=== PATIENT | male | born 1985 | race African-American/Black ===

== ENCOUNTER 2018-08-02 15:38 | Emergency (ER) | payer SELFPAY ==
[~2018-08-02] VITALS: Ht 190.5 cm; Wt 72.6 kg
[2018-08-02 15:55] VITALS: BP 127/81
--- NOTE | 2018-08-02 16:22 | PHYS DOC ---
Past History Past Medical History: No Pertinent History Past Surgical History: Other Alcohol Use: Occasionally Drug Use: Marijuana Adult General Chief Complaint Chief Complaint: WOUND CHECK HPI HPI 32-year-old male presents for evaluation of right-sided facial wound. The patient had a large abscess incision and drained one week ago. He has 4 virgen and a drain placed. He is concerned that the drain seems to be "coming out" and he wonders should be removed. Patient states that he is having minimal drainage at this time. He's had no purulent drainage. He is taking his antibiotics as prescribed. He was not told when to go back and have the drain taken out. He denies fever or chills. He has no other complaints. Review of Systems Review of Systems Constitutional: Denies fever or chills [] Eyes: Denies change in visual acuity, redness, or eye pain [] HENT: Denies nasal congestion or sore throat [] Respiratory: Denies cough or shortness of breath [] Cardiovascular: No additional information not addressed in HPI [] GI: Denies abdominal pain, nausea, vomiting, bloody stools or diarrhea [] : Denies dysuria or hematuria [] Musculoskeletal: Denies back pain or joint pain [] Integument: [place] and drain in right side of neck[] Neurologic: Denies headache, focal weakness or sensory changes [] Endocrine: Denies polyuria or polydipsia [] All other systems were reviewed and found to be within normal limits, except as documented in this note. Physical Exam Physical Exam Constitutional: Well developed, well nourished, no acute distress, non-toxic appearance. [] HENT: Normocephalic, atraumatic, bilateral external ears normal, oropharynx moist, no oral exudates, nose normal. [] Eyes: PERRLA, EOMI, conjunctiva normal, no discharge. [] Neck: Normal range of motion, no tenderness, supple, no stridor. [] Cardiovascular:Heart rate regular rhythm, no murmur [] Lungs & Thorax: Bilateral breath sounds clear to auscultation [] Abdomen: Bowel sounds normal, soft, no tenderness, no masses, no pulsatile masses. [] Skin: 4 virgen in the right neck with silicone drain tube protruding from the end of the incision. Minimal clear drainage. No surrounding erythema or warmth.[ ] Back: No tenderness, no CVA tenderness. [] Extremities: No tenderness, no cyanosis, no clubbing, ROM intact, no edema. [] Neurologic: Alert and oriented X 3, normal motor function, normal sensory function, no focal deficits noted. [] Psychologic: Affect normal, judgement normal, mood normal. [] Current Patient Data Vital Signs Vital Signs Date Time Temp Pulse Resp B/P (MAP) Pulse Ox O2 Delivery O2 Flow Rate FiO2 08/02/18 15:55 98.4 74 16 98 Room Air EKG EKG [] Radiology/Procedures Radiology/Procedures [] Course & Med Decision Making Course & Med Decision Making Pertinent Labs and Imaging studies reviewed. (See chart for details) The patient strain does appear to be working its way out. I believe that after a week strain should be removed. There is minimal drainage present and it is not purulent. I will remove the drain. No signs of current infection. The patient is stable for discharge at this time. The drain was retained with 1 suture. I cut this pierces ears and the drain easily slid out of the wound with gentle traction by tweezers. There was no bleeding. No further drainage. It was covered with a clean nonadherent dressing. [] Dragon Disclaimer Dragon Disclaimer This electronic medical record was generated, in whole or in part, using a voice recognition dictation system. Departure Departure: Referrals: PCP,REGI (PCP) HEATHER FOURNIER DO Aug 02, 2018 16:22
== END 2018-08-02 16:30 | disposition home or self-care (01) ==
LOC: ER 15:38
DX: Z48.01 Encounter for change or removal of surgical wound dressing (principal); L02.11 Cutaneous abscess of neck
CPT/HCPCS: 99283; 99284